=== PATIENT | male | born 1965 | race Caucasian/White ===

== ENCOUNTER 2018-04-06 18:36 | Emergency (ER) | payer OTHER ==
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
[2018-04-06] MEDS ORDERED: LET GEL TOPICAL 1 EA SYR TP ONE ×2 (18:52→18:55)
[2018-04-06] MEDS ORDERED: CYCLOBENZAPRINE 10 MG TAB PO ONE (18:54)
[2018-04-06] MEDS ORDERED: OXYCODONE/APAP 5/325 TAB PO ONE (18:54)
[2018-04-06] MEDS ORDERED: CEPHALEXIN 500MG PREPACK#4 BTL TAKEHOME ONE (20:12)
[2018-04-06] MEDS ORDERED: OXYCODONE/APAP 5/325MG PREPACK#4 BTL TAKEHOME ONE (20:15)
[2018-04-06 20:54] VITALS: BP 104/52
== END 2018-04-06 20:53 | disposition home or self-care (01) ==
DX: S62.316A Displaced fracture of base of fifth metacarpal bone, right hand, initial encounter for closed fracture (principal); S50.311A Abrasion of right elbow, initial encounter; S80.211A Abrasion, right knee, initial encounter; S60.511A Abrasion of right hand, initial encounter; V18.4XXA Pedal cycle driver injured in noncollision transport accident in traffic accident, initial encounter; Y92.410 Unspecified street and highway as the place of occurrence of the external cause; Y99.8 Other external cause status; Y93.55 Activity, bike riding